=== PATIENT | male | born 1945 | race Caucasian/White ===

== ENCOUNTER 2022-08-23 09:31 | Inpatient (IN) | payer MEDICARE, OTHER, SELFPAY ==
[2022-08-23] VITALS (32 sets, daily range): BP systolic 134–203; BP diastolic 52–106; PULSE 80–99; RESP 16–28; TEMP 36.2–37; O2SAT 97–100; BMI 29.7; BMI 36.8
--- NOTE | ~2022-08-23 | XR_ITS ---
EXAMINATION: XR chest 2V DATE: 08/23/2022 11:11 INDICATION: Shortness of breath TECHNIQUE: frontal and lateral views of the chest were obtained. COMPARISON: None FINDINGS: Patchy airspace opacities in the bilateral lower lung zones. Small bilateral pleural effusions at the posterior sulci. No pneumothorax. Borderline heart size accounting for AP technique. Median sternoto my wires and mediastinal surgical clips are seen, likely from prior coronary artery bypass grafting. Retained epicardial pacemaker leads. There are bridging osteophytes at multiple levels in the spine, consistent with diffuse idiopathic skeletal hyperostosis (DISH). IMPRESSION: 1. Opacities at the dependent lower lung zones which could represent pulmonary edema, atelectasis or pneumonia. 2. Small bilateral pleural effusions. Reviewed, dictated and finalized at location A.
--- NOTE | ~2022-08-23 | XR_ITS ---
XR chest 1V portable 08/25/2022 09:30 Indication: Shortness of breath Procedure: AP portable chest Comparison: 08/23/2022 Findings: Status post median sternotomy for CABG. Cardiomegaly. There is pulmonary vascular congestio n. No pleural effusion or pneumothorax. Impression: 1: Cardiomegaly with pulmonary vascular congestion. Reviewed, dictated and finalized at location B. Impression: 1: Cardiomegaly with pulmonary vascular congestion.
--- NOTE | ~2022-08-23 | XR_ITS ---
EXAMINATION: XR chest 1V portable DATE: 08/25/2022 14:12 INDICATION: Shortness of breath. TECHNIQUE: A single frontal view of the chest was obtained. COMPARISON: Chest single view at 8:38 AM, chest 2 views 08/23/2022 FINDINGS: There are airspace opacities in right lower lung zone. No pleural effusion or pneumothorax. The heart size is normal. Median sternotomy wires are noted. IMPRESSION: 1. Stable airspace opacities in right lower lung zone, consistent with atelectasis versus pneumonia. Reviewed, dictated and finalized at location A. IMPRESSION: 1. Stable airspace opacities in right lower lung zone, consistent with atelecta sis versus pneumonia.
--- NOTE | 2022-08-23 09:40 | ECG_ITS ---
Measurements Intervals [place] Rate: 88 P: -34 [place]: 187 QRS: -45 QRSD: 138 T: 112 QT: 410 QTc: 498 Interpretive Statements SINUS RHYTHM POSSIBLE LEFT ATRIAL ENLARGEMENT [-0.1mV P-WAVE IN V1/V2] RIGHT BUNDLE BRANCH BLOCK [120+ ms QRS DURATION, UPRIGHT V1, 40+ ms S IN I/aVL/V4/V5/V6] LEFT ANTERIOR FASCICULAR BLOCK [QRS AXIS <= -45, QR IN I, RS IN II] LEFT VENTRICULAR HYPERTROPHY AND ST-T CHANGE [VOLTAGE CRITERIA PLUS ST/T ABNORMALITY] NO PREVIOUS ECG AVAILABLE FOR COMPARISON Electronically Signed On 08-23-2022 13:13:43 CDT by Arnold Sin M.D.
--- NOTE | 2022-08-23 10:00 | ED.SOB ---
HPI - SOB/Dyspnea General Chief Complaint: Shortness of Breath/Dyspnea <Holly Narvaez PA-C - Last Filed: 08/23/22 16:28> Stated Complaint: SOB <Holly Narvaez PA-C - Last Filed: 08/23/22 16:28> Time Seen by Provider: 08/23/22 09:47 <Holly Narvaez PA-C - Last Filed: 08/23/22 16:28> History of Present Illness HPI Narrative: Patient is a 76-year-old male with a history of end-stage renal disease on Sunday dialysis, CAD status post numerous MIs, 5 stents and CABG procedure done at [facility], diabetes complicated by gastroparesis, here for evaluation of shortness of breath today. Patient states that he became profoundly dyspneic while at rest after waking up today. Denies history of dyspnea. Unable to move without becoming very short of breath. Had some chest tightness yesterday, resolved after nitro, none today. Additionally notes nausea vomiting and diarrhea yesterday, which has improved today but patient is still nauseated. No abdominal pain, fevers. Patient receives all of his care at [facility]. <Holly Narvaez PA-C - Last Filed: 08/23/22 16:28> Related Data Home Medications: Home Medications Medication Instructions Recorded Confirmed amlodipine 5 mg tablet mg 08/23/22 atorvastatin 80 mg tablet mg 08/23/22 carvedilol 12.5 mg tablet mg 08/23/22 clopidogrel 75 mg tablet mg 08/23/22 duloxetine 60 mg capsule,delayed mg PO 08/23/22 08/23/22 release ergocalciferol (vitamin D2) 1,250 08/23/22 mcg (50,000 unit) capsule (Vitamin D2) insulin aspart U-100 100 unit/mL 08/23/22 subcutaneous solution (Novolog U-100 Insulin aspart) isosorbide mononitrate 60 mg mg PO 08/23/22 tablet,extended release 24 hr losartan 25 mg tablet mg 08/23/22 metoclopramide HCl 5 mg tablet mg 08/23/22 nitroglycerin 0.4 mg sublingual mg 08/23/22 tablet omeprazole 20 mg capsule,delayed mg 08/23/22 release vitamin B complex-vitamin C-folic tablet 08/23/22 acid 0.8 mg tablet (Nephro-Cristian) <Holly Narvaez PA-C - Last Filed: 08/23/22 16:28> Allergies/Adverse Reactions: Allergies Allergy/AdvReac Type Severity Reaction Status Date / Time No Known Allergies Allergy Verified 08/23/22 10:23 <Holly Narvaez PA-C - Last Filed: 08/23/22 16:28> Review of Systems Review of Systems: Gen: Denies fevers or chills Eyes: Denies eye pain or visual change ENT: Denies congestion Respiratory: Reports shortness of breath. CV: Denies chest pain or palpitations GI: Reports nausea vomiting and diarrhea. : denies burning, urgency, frequency or hematuria Musculoskeletal: Denies back pain or muscle pain Neuro: Denies numbness, tingling, weakness or focal weakness Skin: Denies rash Except as documented, all other systems reviewed and negative <Holly Narvaez PA-C - Last Filed: 08/23/22 16:28> [facility] Past Medical History Medical History: Medical History (Updated 08/23/22 @ 16:12 by Patricio Ruffin MD) Controlled diabetes mellitus Erythropoietin deficiency anemia ESRD (end stage renal disease) Essential (primary) hypertension Fluid overload, unspecified Hyperlipidemia, unspecified VIOLETTA (renal osteodystrophy) <Holly Narvaez PA-C - Last Filed: 08/23/22 16:28> Course DENTAL OFFICE COORDINATOR/PA Physician Supervision For this patient encounter, I reviewed the DENTAL OFFICE COORDINATOR or PA documentation, treatment plan, and medical decision making; and I had [id number] time with this patient. <Ryan Melendez MD - Last Filed: 08/23/22 11:50> Consultations Consultation #1: Dr. Henriquez, hospitalist at [facility], agrees with plan for transfer <Holly Narvaez PA-C - Last Filed: 08/23/22 16:28> Date: 08/23/22 <Holly Narvaez PA-C - Last Filed: 08/23/22 16:28> Time: 12:33 <Holly Narvaez PA-C - Last Filed: 08/23/22 16:28> Vital Signs Vital signs:
[2022-08-23 10:14] LABS: Base Excess ABG 4.3 mEq/l (+/-2.0); Device ROOM AIR; Fractional Inspired Oxygen 21 %; HCO3 ABG 29.7 mEq/l (22.0-26.0); Modified Allen's Test Pass; Oxygen Content ABG 16.1 %vol (16.0-22.0); Oxygen Saturation ABG 98.4 % (95.0-100.0); Oxyhemoglobin 95.7 % THb (90.0-100.0); PCO2 ABG 47.7 mmHg (35.0-45.0); PO2 ABG 122.9 mmHg (80.0-100.0); PO2 FiO2 Ratio Arterial Blood 5.85 %; Site Drawn RIGHT RADIAL; Total Hemoglobin 11.8 g/dL (12.0-18.0); pH ABG 7.412 (7.350-7.450)
[2022-08-23 10:28] LABS: Basophils Absolute Auto 0.1 K/mm3 (0.0-0.1); Basophils Percent Auto 0.8 % (0.2-1.2); Eosinophils Absolute Auto 0.1 K/mm3 (0-0.3); Eosinophils Percent Auto 0.7 % (0-4.4); Hematocrit 33.2 % (42.0-52.0); Hemoglobin 10.7 g/dL (14.0-18.0); Immature Granulocyte Absolute 0.07 K/mm3 (0.00-0.031); Immature Granulocyte Percent A 0.8 % (0-0.5); Lymphocytes Absolute Auto 0.55 K/mm3 (0.9-3.2); Lymphocytes Percent Auto 6.2 % (18.3-44.2); Mean Corpuscular HGB Conc 32.2 g/dl (32-36); Mean Corpuscular Hemoglobin 32.7 pg (26-34); Mean Corpuscular Volume 101.5 fl (80-100); Mean Platelet Volume 10.9 fl (7.4-10.4); Monocytes Absolute Auto 0.7 K/mm3 (0.1-0.6); Monocytes Percent Auto 7.9 % (2.6-8.5); Neutrophils Absolute Auto 7.4 K/mm3 (1.3-6.7); Neutrophils Percent Auto 83.6 % (45.5-73.1); Platelet Count Result 149 k/mm3 (150-375); Red Blood Count 3.27 M/mm3 (4.6-6.20); Red Cell Distribution Width 12.5 % (11.5-14.5); White Blood Count 8.8 K/mm3 (4.5-10.0)
[2022-08-23 10:38] LABS: Lipase 289 U/L (23-300)
[2022-08-23 10:40] LABS: Alanine Aminotransferase 18 U/L (6-50); Albumin Level 4.2 g/dL (3.5-5.1); Alkaline Phosphatase 56 U/L (38-126); Anion Gap 18 mmol/L (8-16); Aspartate Amino Transferase 17 U/L (17-59); Blood Urea Nitrogen 37 mg/dL (9-20); Calcium 8.8 mg/dL (8.4-10.2); Carbon Dioxide 33 mmol/L (22-30); Chloride 88 mmol/L (98-107); Estimated CRCL calculation 9 ml/min; Estimated Glomerular Filt Rate 7; Glucose 159 mg/dL (65-110); Potassium 4.3 mmol/L (3.4-5.0); Sodium 139 mmol/L (137-145)
[2022-08-23 10:42] LABS: INR 1.1; Prothrombin Time 13.8 Seconds (11.1-14.7)
[2022-08-23 10:43] LABS: Partial Thromboplastin Time 30.4 SECONDS (22.3-36.8)
[2022-08-23 10:54] LABS: NT Pro B Type Natriuretic Pept > 35000 pg/mL (5-100); Troponin I 0.083 ng/mL (0.000-0.034)
[2022-08-23 11:06] LABS: Magnesium 1.8 mg/dL (1.6-2.3); Phosphorus 5.6 mg/dL (2.5-4.5)
[2022-08-23 11:07] LABS: SARS-CoV-2 RNA PCR Negative
--- NOTE | 2022-08-23 13:17 | PM.CNNEP ---
Assessment and Plan Assessment and plan (1) ESRD (end stage renal disease): Code(s): N18.6 - End stage renal disease Status: Acute Assessment and Plan: pt has esrd due to dm and htn HD soon. I wrote orders and notified the nurse. (2) Essential (primary) hypertension: Code(s): I10 - Essential (primary) hypertension Status: Acute Assessment and Plan: bp is high. it should come down with fluid removal. (3) Fluid overload, unspecified: Code(s): E87.70 - Fluid overload, unspecified Status: Acute Assessment and Plan: he got to dry weight on sunday. I suspect his real weight is lower than the DW because he lost weight with his gastroparesis. will remove extra fluid. maybe a DUF tomorrow depending on how he looks. (4) Controlled diabetes mellitus: Code(s): E11.9 - Type 2 diabetes mellitus without complications Status: Acute Assessment and Plan: on accuchecks and SSI per hospitalist (5) Hyperlipidemia, unspecified: Code(s): E78.5 - Hyperlipidemia, unspecified Status: Acute Assessment and Plan: he is on atorvastain (6) Erythropoietin deficiency anemia: Code(s): D63.1 - Anemia in chronic kidney disease Status: Acute Assessment and Plan: hb 10.7. will give 4000 epo if bp comes down (7) VIOLETTA (renal osteodystrophy): Code(s): N25.0 - Renal osteodystrophy Status: Acute Assessment and Plan: check phos in am History of Present Illness Reason for Consult Consult date: 08/23/22 Chief Complaint Chief complaint: chf exacerbation History of Present Illness Narrative: Mr Magallanes is a 76 yo male with multiple medical problems including DM with neuropathy, gastroparesis, and renal failure; HTN, CAD s/p stents, CABG, MIs, GERD, HLD. pt has not been eating well the last week or so. gastroparesis has been worse. he has been going to HD faithfully and getting down to his dry weight. he has no swelling and his bp has been pretty good at HD he says. today he was due for HD and he was very sob so called 911 and they brought him here to be evaluated. In ER he was found to have lo oxygen level, cxr showing pulmonary edema. he is being admitted for further care. his bp was high in the ER. he had a short period of cp last night relieved by one nitro. this is not an uncommon occurence. Past Hx as above SHx. he does not smoke or drink All: nkda Review of Systems Constitutional: Constitutional: Reports no additional constitutional complaints Eyes: Eyes: Reports no additional eye complaints ENT: Reports system reviewed and no additional complaints, except as documented Cardiovascular: Cardiovascular: Reports no additional cardiovascular complaints Respiratory: Respiratory: Reports no additional respiratory complaints Gastrointestinal: Gastrointestinal: Reports no additional gastrointestinal complaints Genitourinary: Genitourinary: Reports no additional male genitourinary complaints Musculoskeletal: Musculoskeletal: Reports no additional musculoskeletal complaints Integumentary/Breasts: Skin/Breast: Reports system reviewed and no additional complaints, except as docu Neurologic: Reports system reviewed and no additional complaints, except as documented Psychiatric: Psychiatric: Reports no additional psychiatric complaints Endocrine: Endocrine: Reports no additional endocrine complaints PMFSH Past Medical History Medical History (Updated 08/23/22 @ 16:12 by Patricio Ruffin MD) Controlled diabetes mellitus Erythropoietin deficiency anemia ESRD (end stage renal disease) Essential (primary) hypertension Fluid overload, unspecified Hyperlipidemia, unspecified VIOLETTA (renal osteodystrophy) Meds Home Medications and Allergies Home Medications Medication Instructions Recorded Confirmed Type amlodipine 5 mg tablet mg 08/23/22 History atorvastatin 80 mg tablet mg 08/23/22
[2022-08-23 14:26] LABS: Troponin I 0.117 ng/mL (0.000-0.034)
[2022-08-23] MEDS: EPOETIN ALFA-EPBX 4,000 UNITS/ML VIAL 4000 UNITS IV PUSH (15:15)
[2022-08-23] MEDS: SODIUM CHLORIDE 0.9% IV 1,000 ML 999 ML IV CONT (15:15)
[2022-08-23] MEDS: cloNIDine HCL 0.1 MG TABLET PO (16:44)
--- NOTE | 2022-08-23 18:36 | ADMGEN ---
This patient, Robert Magallanes, was admitted to IMU Room 231-01 at 1835 on 08/23/2022. Report received from Madelyn DREW. Patient/family oriented to hospital policies and general routines including ID bracelet, bed and alarms, visiting hours, pain management, procedures, bathroom and other care routines, personal items, smoking policy, room service/diet, and visiting hours. Information on how to activate the Rapid Response Team has been discussed. Patient/Family are encouraged to report perceived risks to care and to ask questions if they do not understand what they are told or what they should do.
[2022-08-23 18:40] LABS: Glucose Point of Care 123 mg/dl (65-105)
--- NOTE | 2022-08-23 19:58 | PM.IMHP ---
H&P: HPI History of Present Illness Date/Time: 08/23/22 19:58 Chief Complaint: chest pain/ shortness of breath Narrative: this is a 76-year-old male patient who has end-stage renal disease with dialysis on Sunday and Sunday. The patient tells me that he has all of his care performed at [facility]. However the patient cannot tell me who his bag mender is. He also his a history of 5 stents and a 1 vessel CABG. The patient stated that he became short of breath today and was very dyspneic with rest and exertion He was unable to move without becoming short of breath. He also had some chest tightness that started yesterday and was resolved after nitroglycerin. No chest pain today. The patient noted that he had nausea vomiting and diarrhea yesterday and improved today. He had some nausea today the no abdominal pain. The patient stated that he is new to this area. His H&H is 10.7 and 33.2. MCV is 101.5. Platelet count 149. The patient's BUN is 37 and creatinine 7.6. Glucose 159 and he had an Accu-Chek of 123. phosphorus was 5.6. Troponin 0.083 and 0.117. His BNP was greater than 35,000. Dr. Ruffin bag mender has been consulted and the patient went to dialysis today. The patient stated he felt much better after dialysis. COVID-19 was found to be negative. Chest x-ray was read as opacities at the dependent lower lung zones which could represent pulmonary edema atelectasis or pneumonia. Small bilateral pleural effusions. The patient was given IV fluids and Catapres as well as Retacrit per Dr. Ruffin. He was also given albumin. The patient is being admitted to observation status on the date of service of 08/23/2022. Review of Systems Review of Systems: HPI All systems reviewed & are unremarkable except as noted in HPI and below Constitutional: Constitutional: Reports as per HPI and Reports no additional constitutional complaints Eyes: Eyes: Reports as per HPI and Reports no additional eye complaints ENT: Reports system reviewed and no additional complaints, except as documented and Reports Normal hearing present Cardiovascular: Cardiovascular: Reports no additional cardiovascular complaints Respiratory: Respiratory: Reports no additional respiratory complaints and Reports no additional respiratory complaints Gastrointestinal: Gastrointestinal: Reports as per HPI and Reports no additional gastrointestinal complaints Musculoskeletal: Musculoskeletal: Reports no additional musculoskeletal complaints Integumentary/Breasts: Skin/Breast: Reports system reviewed and no additional complaints, except as docu and Reports as per HPI Neurologic: Reports system reviewed and no additional complaints, except as documented, Reports as per HPI and Reports Normal hearing present Psychiatric: Psychiatric: Reports no additional psychiatric complaints and Reports as per HPI Endocrine: Endocrine: Reports no additional endocrine complaints Hematologic/Lymphatic: Hematologic/Lymphatic: Reports no additional hematologic/lymphatic complaints Allergic/Immunologic: Allergic/Immunologic: Reports no additional allergic/immunologic complaints [facility] Past Medical History Medical History (Updated 08/23/22 @ 20:15 by Tianna Iglesias NP) AV fistula Controlled diabetes mellitus Depression Erythropoietin deficiency anemia ESRD (end stage renal disease) Sunday Essential (primary) hypertension Fluid overload, unspecified Hyperlipidemia, unspecified VIOLETTA (renal osteodystrophy) Surgical History Surgical History (Updated 08/23/22 @ 20:08 by Tianna Iglesias NP) H/O cataract extraction H/O heart artery stent H/O radical nephrectomy H/O vasectomy S/P CABG x 1 S/P total knee arthroplasty Family History Family History (Updated 08/23/22 @ 20:09 by Tianna Iglesias NP) Father Heart disease Mother Tuberculosis Sibling Acute myocardial infarction Social History Social History (Updated 10
[2022-08-23 20:22] LABS: Glucose Point of Care 141 mg/dl (65-105)
[2022-08-24] VITALS (33 sets, daily range): BP systolic 104–183; BP diastolic 53–81; PULSE 71–93; RESP 18–22; TEMP 36.2–37; O2SAT 94–100; BMI 29.7
--- NOTE | 2022-08-24 | ECHO_ITS ---
Patient Info Name: Robert Magallanes Age: 76 years : 1945 Gender: Male Ht: 72 in Wt: 271 lbs BSA: 2.54 m2 BP: 151 / 60 mmHg Heart Rhythm: Sinus Rhythm Technical Quality: Fair Exam Date: 08/24/2022 2:36 PM Exam Location: [facility] Pulmonary Patient Status: Inpatient Admit Date: 08/24/2022 Staff Ordering Physician: Tianna Iglesias NP Commercial Counsel: Maine Carpenter RDCS Attending Provider: Patel Fletcher MD Referring Physician: Harris VIEIRA; Exam Type: CA echo dop color flow w con Study Info Indications R06.09 - Other forms of dyspnea Complete two-dimensional, color flow and Doppler transthoracic echocardiogram is performed with contrast to opacify the left ventricle and to improve the deliniation of the left ventricle endocardial borders. Contrast/Agitated Saline Contrast/Ag. Saline: Definity Amount: 3.00 ml Administered By: Maine Carpenter RDCS Existing IV Access: Yes IV Access Condition: patent with no signs of infiltration Summary 1. Left ventricular chamber dimension is severely enlarged. 2. Left ventricular systolic function is severely reduced, estimated at 25-30%. 3. There is mildly increased left ventricular wall thickness. 4. There is hypokinesis-akinesis of the basal anteroseptum, mid anteroseptum, basal inferoseptum, mid inferoseptum, apical septum, basal anterior, mid anterior, apical anterior fitch. 5. Right ventricular systolic function is reduced. 6. Left atrial chamber dimension is mildly enlarged. 7. There is mild mitral valve regurgitation. 8. There is mild tricuspid valve regurgitation. 9. The aortic root size at the sinus of Valsalva is dilated. Left Ventricle There is hypokinesis-akinesis of the basal anteroseptum, mid anteroseptum, basal inferoseptum, mid inferoseptum, apical septum, basal anterior, mid anterior, apical anterior fitch. Left ventricular chamber dimension is severely enlarged. Left ventricular systolic function is severely reduced, estimated at 25-30%. There is mildly increased left ventricular wall thickness. Right Ventricle Right ventricular chamber dimension is normal. Right ventricular systolic function is reduced. Left Atria Left atrial chamber dimension is mildly enlarged. Right Atria Right atrial chamber dimension is normal. Atrial Septum Intact interatrial septum visualized by color flow imaging. Aortic Valve The aortic valve is trileaflet. There is mild aortic valve sclerosis. There is no aortic valve stenosis. There is no aortic valve regurgitation. Pulmonic Valve The pulmonic valve is not well visualized. Mitral Valve The mitral valve has normal leaflets. There is no mitral valve stenosis. There is mild mitral valve regurgitation. The mitral valve annulus is mildly calcified. Tricuspid Valve The tricuspid valve leaflets are normal. There is mild tricuspid valve regurgitation. Pericardium/Pleural There is no pericardial effusion. Aorta The aortic root size at the sinus of Valsalva is dilated. Left Ventricular Outflow Tract Name Value Normal LVOT 2D LVOT Diameter 2.07 cm LVOT Doppler
[2022-08-24 04:48] LABS: Basophils Absolute Auto 0.1 K/mm3 (0.0-0.1); Basophils Percent Auto 1.1 % (0.2-1.2); Eosinophils Absolute Auto 0.1 K/mm3 (0-0.3); Eosinophils Percent Auto 1.5 % (0-4.4); Hematocrit 31.1 % (42.0-52.0); Hemoglobin 10.1 g/dL (14.0-18.0); Immature Granulocyte Absolute 0.04 K/mm3 (0.00-0.031); Immature Granulocyte Percent A 0.6 % (0-0.5); Immature Platelet Fraction Pct 7.4 % (0.9-11.2); Lymphocytes Absolute Auto 0.76 K/mm3 (0.9-3.2); Lymphocytes Percent Auto 11.5 % (18.3-44.2); Mean Corpuscular HGB Conc 32.5 g/dl (32-36); Mean Corpuscular Volume 101.6 fl (80-100); Mean Platelet Volume 11.3 fl (7.4-10.4); Monocytes Absolute Auto 0.6 K/mm3 (0.1-0.6); Monocytes Percent Auto 8.4 % (2.6-8.5); Neutrophils Absolute Auto 5.1 K/mm3 (1.3-6.7); Neutrophils Percent Auto 76.9 % (45.5-73.1); Platelet Count Result 160 k/mm3 (150-375); Red Blood Count 3.06 M/mm3 (4.6-6.20); Red Cell Distribution Width 12.5 % (11.5-14.5); White Blood Count 6.6 K/mm3 (4.5-10.0)
[2022-08-24 05:10] LABS: Alanine Aminotransferase 16 U/L (6-50); Albumin Level 3.9 g/dL (3.5-5.1); Alkaline Phosphatase 56 U/L (38-126); Anion Gap 11 mmol/L (8-16); Aspartate Amino Transferase 16 U/L (17-59); Blood Urea Nitrogen 22 mg/dL (9-20); Calcium 8.5 mg/dL (8.4-10.2); Carbon Dioxide 36 mmol/L (22-30); Chloride 92 mmol/L (98-107); Estimated CRCL calculation 11 ml/min; Estimated Glomerular Filt Rate 9; Glucose 111 mg/dL (65-110); Lactate Dehydrogenase 138 U/L (120-246); Magnesium 1.9 mg/dL (1.6-2.3); Phosphorus 3.9 mg/dL (2.5-4.5); Potassium 4.3 mmol/L (3.4-5.0); Sodium 139 mmol/L (137-145)
[2022-08-24 05:15] LABS: Hemoglobin A1C 6.1 % (<5.7)
[2022-08-24] MEDS: SEVELAMER CARBONATE 800 MG TABLET 2400 MG PO ×3 (07:57→16:56)
[2022-08-24] MEDS: carvediloL 12.5 MG TABLET PO (07:57)
[2022-08-24] MEDS: hydrALAZINE HCL 20 MG/ML VIAL 10 MG IV PUSH (07:57)
[2022-08-24] MEDS: VITAMIN B CMPLX/VIT C/FOLIC AC 1 CAPSULE 1 CAP PO (07:57)
[2022-08-24] MEDS: TOLNAFTATE 1% POWDER 45 GM BTL 1 APPLIC TOPICAL (07:58)
[2022-08-24] MEDS: ASPIRIN 81 MG ENTERIC TABLET PO (07:58)
[2022-08-24] MEDS: DULoxetine HCL 60 MG CAPSULE.DR PO (07:58)
--- NOTE | 2022-08-24 09:30 | PM.PNNEP ---
Progress Note: A&P Assessment and Plan (1) ESRD (end stage renal disease): Code(s): N18.6 - End stage renal disease Status: Acute Assessment and Plan: pt has esrd due to dm and htn he had dialysis yesterday which was his routine day. He still has some volume overload so will do a dry ultrafiltration today. (2) Essential (primary) hypertension: Code(s): I10 - Essential (primary) hypertension Status: Acute Assessment and Plan: bp is high. It improved with clonidine and with fluid removal yesterday but today is back up. He is on amlodipine 5, carvedilol 12.5, hydralazine, losartan. Will increase the losartan to 50. (3) Fluid overload, unspecified: Code(s): E87.70 - Fluid overload, unspecified Status: Acute Assessment and Plan: He still has some excess fluid. Will take more fluid off today with dialysis machine. (4) Controlled diabetes mellitus: Code(s): E11.9 - Type 2 diabetes mellitus without complications Status: Acute Assessment and Plan: on accuchecks and SSI per hospitalist (5) Hyperlipidemia, unspecified: Code(s): E78.5 - Hyperlipidemia, unspecified Status: Acute Assessment and Plan: he is on atorvastain (6) Erythropoietin deficiency anemia: Code(s): D63.1 - Anemia in chronic kidney disease Status: Acute Assessment and Plan: Hemoglobin 10.1 today. (7) VIOLETTA (renal osteodystrophy): Code(s): N25.0 - Renal osteodystrophy Status: Acute Assessment and Plan: check phos in am Subjective Date/time seen: 08/24/22 09:30 Interval history: Robert is feeling better today but he is so short of breath. No chest pain. He did need dinner last night. Still no appetite. Review of Systems Cardiovascular: Cardiovascular: Reports no additional cardiovascular complaints Respiratory: Respiratory: Reports no additional respiratory complaints Gastrointestinal: Gastrointestinal: Reports no additional gastrointestinal complaints Genitourinary: Genitourinary: Reports no additional male genitourinary complaints Exam Narrative: WDWN in NAD skin no rash head ncat lungs Bibasilar crackles cor reg no rub abd BS+ nontender and soft ext no edema. Objective Data Vital Signs Vital Signs: Vital Signs - 24 hr 08/23/22 10:30 08/23/22 11:41 08/23/22 11:46 Temperature Pulse Rate 89 87 87 Respiratory Rate 16 20 21 H Blood Pressure 178/82 H 192/97 H Pulse Oximetry 100 100 100 Oxygen Delivery Oxygen Flow Rate Fraction of Inspired Oxygen 08/23/22 12:01 08/23/22 12:16 08/23/22 12:17 Temperature Pulse Rate 90 91 90 Respiratory Rate 20 23 H 20 Blood Pressure 187/82 H 187/87 H Pulse Oximetry 100 100 100 Oxygen Delivery Oxygen Flow Rate Fraction of Inspired Oxygen 08/23/22 12:32 08/23/22 12:55 08/23/22 13:13 Temperature Pulse Rate 93 99 89 Respiratory Rate 17 24 H 24 H Blood Pressure Pulse Oximetry 100 97 100 Oxygen Delivery Oxygen Flow Rate Fraction of Inspired Oxygen 08/23/22 13:16 08/23/22 13:17 08/23/22 14:18 Temperature Pulse Rate 90 92 88 Respiratory Rate 23 H 22 H Blood Pressure 187/83 H 175/94 H Pulse Oximetry 100 100 Oxygen Delivery Oxygen Flow Rate Fraction of Inspired Oxygen 08/23/22 14:05 08/23/22 14:05 08/23/22 14:40 Temperature 36.3 C L Pulse Rate 97 91 Respiratory Rate 28 H Blood Pressure 194/106 H 187/95 H Pulse Oximetry Oxygen Delivery Oxygen Flow Rate Fraction of Inspired Oxygen 2 08/23/22 15:00 08/23/22 15:20 08/23/22 15:40 Temperature Pulse Rate 88 87 87 Respiratory Rate Blood Pressure 190/89 H 188/91 H 189/94 H Pulse Oximetry Oxygen Delivery Oxygen Flow Rate Fraction of Inspired Oxygen 08/23/22 16:00 08/23/22 16:20 08/23/22 16:40 Temperature Pulse Rate 88 89 89 Respiratory Rate Blood Pressure 197/
--- NOTE | 2022-08-24 11:00 | PM.CNCAR ---
Assessment and Plan Assessment and plan (1) Elevated troponin: Code(s): R77.8 - Other specified abnormalities of plasma proteins Status: Acute Assessment and Plan: Troponins 0.083 --> 0.117. In the setting of ESRD. EKG with sinus rhythm, RBBB, LVH. No ischemic changes. Echo ordered and pending. Will follow up on results. At this time, it does not appear to be ACS. 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 Would continue his home ASA, Plavix, beta-nikhil, statin. Is already scheduled to see Dr. Delaney in August. History of Present Illness History of Present Illness Consult date/time: 08/24/22 11:00 Requesting physician: Tianna Iglesias NP Consult reason: congestive heart failure and shortness of breath Reason For Visit: chf exacerbation Narrative: This is a patient who we are consulted for heart failure. Patient is a 76-year-old male with a history of ESRD on HD, CAD s/p CABG and stents. Patient presented with progressive shortness of breath. Patient also reports chest tightness yesterday that resolved after 2 SL NTG. Patient states he occasionally takes SL NTG for chest pain, but cannot remember the last time when and does not think it is too frequently. Patient also noted to have nausea, vomiting, diarrhea. Got dialysis yesterday and feels better today. Patient states that he just moved from [place], [place]. Cannot remember who is packing line operator was there, but was being seen at [facility]. It appears that patient is on ASA and Plavix at home. Patient is not the best historian. Patient states that he has an upcoming appointment to get established with Cardiology. Is scheduled to see Dr. Delaney in August. Review of Systems Constitutional: Constitutional: Denies body ache(s), Denies chills, Reports fatigue and Reports weakness Eyes: Eyes: Reports no additional eye complaints ENT: Denies dysphagia and Denies epistaxis Cardiovascular: Cardiovascular: Denies chest pain, Denies leg edema and Denies palpitations Respiratory: Respiratory: Reports dyspnea Gastrointestinal: Gastrointestinal: Denies abdominal pain, Denies nausea and Denies vomiting Musculoskeletal: Musculoskeletal: Reports no additional musculoskeletal complaints Integumentary/Breasts: Skin/Breast: Reports system reviewed and no additional complaints, except as docu Neurologic: Reports system reviewed and no additional complaints, except as documented Hematologic/Lymphatic: Hematologic/Lymphatic: Denies easy bleeding and Denies easy bruising PMFSH Past Medical History Medical History (Updated 08/24/22 @ 11:06 by Arnold Sin MD) AV fistula CAD (coronary artery disease) Controlled diabetes mellitus Depression Erythropoietin deficiency anemia ESRD (end stage renal disease) Sunday Essential (primary) hypertension Fluid overload, unspecified Hyperlipidemia, unspecified VIOLETTA (renal osteodystrophy) Surgical History Surgical History H/O cataract extraction H/O heart artery stent H/O radical nephrectomy H/O vasectomy S/P CABG x 1 S/P total knee arthroplasty Family History Family History Father Heart disease Mother Tuberculosis Sibling Acute myocardial infarction Social History Social History Social History: the patient lives with his and he is retired. He has 2 children. He retired from the [employer] And he is a former smoker. the patient denies any alcohol marijuana or illicit drugs. Code status full code Smoking status: Former smoker Alcoh
--- NOTE | 2022-08-24 12:22 | PM.IMPN ---
Progress Note: A&P Assessment and Plan (1) Chest pain: Code(s): R07.9 - Chest pain, unspecified Status: Acute Assessment and Plan: appreciate cardiology consultation, echo pending, likely not cardiac in etiology (2) Dyspnea on exertion: Code(s): R06.09 - Other forms of dyspnea Status: Acute Assessment and Plan: improved after dialysis, suspect it was due to volume overload, follow up on echo results, hold off on antibiotics for now (3) Fluid overload, unspecified: Code(s): E87.70 - Fluid overload, unspecified Status: Acute Assessment and Plan: improved, monitor (4) Essential (primary) hypertension: Code(s): I10 - Essential (primary) hypertension Status: Acute Assessment and Plan: stable, continue p.r.n. medications for now, defer further management to Nephrology (5) ESRD (end stage renal disease): Code(s): N18.6 - End stage renal disease Status: Acute Assessment and Plan: appreciate nephrology consultation (6) Controlled diabetes mellitus: Code(s): E11.9 - Type 2 diabetes mellitus without complications Status: Acute Assessment and Plan: a1c is 6.1 with insulin pump on board cont accuchecks (7) Hyperlipidemia, unspecified: Code(s): E78.5 - Hyperlipidemia, unspecified Status: Acute Assessment and Plan: continue statin (8) Erythropoietin deficiency anemia: Code(s): D63.1 - Anemia in chronic kidney disease Status: Acute Assessment and Plan: stable, appreciate nephrology consultation, receiving Epogen (9) Depression: Code(s): F32.A - Depression, unspecified Status: Acute Assessment and Plan: continue home medications Plan DVT prophylaxis with SCDs GI prophylaxis not indicated Code status full code Subjective Date/time seen: 08/24/22 12:22 Interval history: No overnight events noted. No chest pain or shortness of breath. No nausea, vomiting or diarrhea. No fevers or chills. Review of Systems Review of Systems: 12 point review of systems was assessed and was negative except as noted in the HPI Exam Narrative: General: No acute distress, alert and oriented per baseline HEENT: Atraumatic, normocephalic, mucous membranes moist CV: Regular rate and rhythm, S1, S2 Lungs: Clear to auscultation bilaterally, no rales or crackles noted, no wheezes, good air entry Abdomen: Soft, nontender, nondistended Extremities: Normal to inspection Skin: No rashes noted, no lesions or wounds seen Psych: Euthymic, normal affect Objective Data Vital Signs Vital Signs: Vital Signs - 24 hr 08/23/22 12:32 08/23/22 12:55 08/23/22 13:13 Temperature Pulse Rate 93 99 89 Respiratory Rate 17 24 H 24 H Blood Pressure Pulse Oximetry 100 97 100 Oxygen Delivery Oxygen Flow Rate Fraction of Inspired Oxygen 08/23/22 13:16 08/23/22 13:17 08/23/22 14:18 Temperature Pulse Rate 90 92 88 Respiratory Rate 23 H 22 H Blood Pressure 187/83 H 175/94 H Pulse Oximetry 100 100 Oxygen Delivery Oxygen Flow Rate Fraction of Inspired Oxygen 08/23/22 14:05 08/23/22 14:05 08/23/22 14:40 Temperature 97.4 F L Pulse Rate 97 91 Respiratory Rate 28 H Blood Pressure 194/106 H 187/95 H Pulse Oximetry Oxygen Delivery Oxygen Flow Rate Fraction of Inspired Oxygen 2 08/23/22 15:00 08/23/22 15:20 08/23/22 15:40 Temperature Pulse Rate 88 87 87 Respiratory Rate Blood Pressure 190/89 H 188/91 H 189/94 H Pulse Oximetry Oxygen Delivery Oxygen Flow Rate Fraction of Inspired Oxygen 08/23/22 16:00 08/23/22 16:20 08/23/22 16:40 Temperature Pulse Rate 88 89 89 Respiratory Rate Blood Pressure 197/89 H 203/89 H 197/89 H Pulse Oximetry Oxygen Delivery Oxygen Flow Rate Fraction of Inspired Oxygen 08/23/22 17:00 08/23/22 17:20 08/23/22 17:49 Temperature
--- NOTE | 2022-08-24 13:29 | PCNSR ---
On 08/24/22, the student,Miguel Angel Omalley, provided care and completed [facility] documentation on this patient. I have reviewed the student's documentation and agree with the findings.
[2022-08-24] MEDS: PERFLUTREN LIPID MICROSPHERES 1.5 ML VIAL DILUTED TO 10 ML TOTAL VOLUME IV PUSH (14:50)
[2022-08-24 19:40] LABS: Glucose Point of Care 248 mg/dl (65-105)
[2022-08-24] MEDS: ATORVASTATIN 40 MG TABLET 80 MG PO (20:29)
[2022-08-24] MEDS: LOSARTAN POTASSIUM 25 MG TABLET PO (20:30)
[2022-08-24] MEDS: carvediloL 12.5 MG TABLET BY MOUTH (20:30)
[2022-08-24] MEDS: CLOPIDOGREL BISULFATE 75 MG TABLET PO (20:30)
[2022-08-24] MEDS: amLODIPine BESYLATE 5 MG TABLET PO (20:30)
[2022-08-25] VITALS (26 sets, daily range): BP systolic 88–155; BP diastolic 46–73; PULSE 58–127; RESP 16–22; TEMP 36.4–37.1; O2SAT 92–100; BMI 28.5
[2022-08-25 05:03] LABS: Basophils Absolute Auto 0.1 K/mm3 (0.0-0.1); Basophils Percent Auto 1.2 % (0.2-1.2); Eosinophils Absolute Auto 0.3 K/mm3 (0-0.3); Eosinophils Percent Auto 4.2 % (0-4.4); Hemoglobin 11.2 g/dL (14.0-18.0); Immature Granulocyte Absolute 0.02 K/mm3 (0.00-0.031); Immature Granulocyte Percent A 0.3 % (0-0.5); Lymphocytes Absolute Auto 1.07 K/mm3 (0.9-3.2); Lymphocytes Percent Auto 16.5 % (18.3-44.2); Mean Corpuscular HGB Conc 32.9 g/dl (32-36); Mean Corpuscular Hemoglobin 32.3 pg (26-34); Mean Platelet Volume 11.3 fl (7.4-10.4); Monocytes Absolute Auto 0.6 K/mm3 (0.1-0.6); Monocytes Percent Auto 8.8 % (2.6-8.5); Neutrophils Absolute Auto 4.5 K/mm3 (1.3-6.7); Platelet Count Result 174 k/mm3 (150-375); Red Blood Count 3.47 M/mm3 (4.6-6.20); Red Cell Distribution Width 12.4 % (11.5-14.5); White Blood Count 6.5 K/mm3 (4.5-10.0)
[2022-08-25 05:19] LABS: Alanine Aminotransferase 16 U/L (6-50); Albumin Level 4.2 g/dL (3.5-5.1); Alkaline Phosphatase 62 U/L (38-126); Anion Gap 14 mmol/L (8-16); Aspartate Amino Transferase 19 U/L (17-59); Bilirubin,Total 1.1 mg/dL (0.2-1.3); Blood Urea Nitrogen 45 mg/dL (9-20); Carbon Dioxide 33 mmol/L (22-30); Chloride 88 mmol/L (98-107); Estimated CRCL calculation 8 ml/min; Estimated Glomerular Filt Rate 7; Glucose 127 mg/dL (65-110); Phosphorus 5.4 mg/dL (2.5-4.5); Sodium 135 mmol/L (137-145)
--- NOTE | 2022-08-25 08:04 | PM.IMPN ---
Progress Note: A&P Assessment and Plan (1) Chest pain: Code(s): R07.9 - Chest pain, unspecified Status: Acute Assessment and Plan: appreciate cardiology consultation, echo pending, likely not cardiac in etiology (2) Dyspnea on exertion: Code(s): R06.09 - Other forms of dyspnea Status: Acute Assessment and Plan: improved after dialysis, suspect it was due to volume overload, follow up on echo results, hold off on antibiotics for now (3) Fluid overload, unspecified: Code(s): E87.70 - Fluid overload, unspecified Status: Acute Assessment and Plan: improved, monitor (4) Essential (primary) hypertension: Code(s): I10 - Essential (primary) hypertension Status: Acute Assessment and Plan: stable, continue p.r.n. medications for now, defer further management to Nephrology (5) ESRD (end stage renal disease): Code(s): N18.6 - End stage renal disease Status: Acute Assessment and Plan: appreciate nephrology consultation (6) Controlled diabetes mellitus: Code(s): E11.9 - Type 2 diabetes mellitus without complications Status: Acute Assessment and Plan: a1c is 6.1 with insulin pump on board cont accuchecks (7) Hyperlipidemia, unspecified: Code(s): E78.5 - Hyperlipidemia, unspecified Status: Acute Assessment and Plan: continue statin (8) Erythropoietin deficiency anemia: Code(s): D63.1 - Anemia in chronic kidney disease Status: Acute Assessment and Plan: stable, appreciate nephrology consultation, receiving Epogen (9) Depression: Code(s): F32.A - Depression, unspecified Status: Acute Assessment and Plan: continue home medications Plan DVT prophylaxis with SCDs GI prophylaxis not indicated Code status full code Subjective Date/time seen: 08/25/22 08:04 Interval history: No overnight events noted. No chest pain or shortness of breath. No nausea, vomiting or diarrhea. No fevers or chills. Exam Narrative: General: No acute distress, alert and oriented per baseline HEENT: Atraumatic, normocephalic, mucous membranes moist CV: Regular rate and rhythm, S1, S2 Lungs: Clear to auscultation bilaterally, no rales or crackles noted, no wheezes, good air entry Abdomen: Soft, nontender, nondistended Extremities: Normal to inspection Skin: No rashes noted, no lesions or wounds seen Psych: Euthymic, normal affect Objective Data Vital Signs Vital Signs: Vital Signs - 24 hr 08/24/22 08:08 08/24/22 09:25 08/24/22 09:27 Temperature 97.2 F L 97.8 F Pulse Rate 89 93 Respiratory Rate 18 Blood Pressure 183/73 H 160/73 H Pulse Oximetry 94 Oxygen Delivery Oxygen Flow Rate 3 08/24/22 09:39 08/24/22 09:45 08/24/22 10:00 Temperature Pulse Rate 89 86 76 Respiratory Rate Blood Pressure 162/72 H 153/70 H Pulse Oximetry Oxygen Delivery Oxygen Flow Rate 08/24/22 10:00 08/24/22 10:15 08/24/22 10:30 Temperature Pulse Rate 80 78 76 Respiratory Rate Blood Pressure 150/71 H 148/65 H 138/69 Pulse Oximetry Oxygen Delivery Oxygen Flow Rate 08/24/22 10:45 08/24/22 11:00 08/24/22 11:15 Temperature Pulse Rate 71 75 74 Respiratory Rate Blood Pressure 135/69 157/65 H 146/76 H Pulse Oximetry Oxygen Delivery Oxygen Flow Rate 08/24/22 11:30 08/24/22 11:45 08/24/22 12:00 Temperature Pulse Rate 74 76 75 Respiratory Rate Blood Pressure 143/67 H 152/68 H Pulse Oximetry Oxygen Delivery Oxygen Flow Rate 08/24/22 12:00 08/24/22 12:00 08/24/22 12:15 Temperature Pulse Rate 75 75 Respiratory Rate Blood Pressure 148/71 H 142/71 H Pulse Oximetry 94 Oxygen Delivery High Flow Nasal Cannula Oxygen Flow Rate 3 08/24/22 12:30 08/24/22 12:39 08/24/22 12:43 Temperature 98.2 F Pulse Rate 78 77 76 Respiratory Rate 20 Blood Pressure 120/
[2022-08-25 08:20] LABS: Glucose Point of Care 117 mg/dl (65-105)
--- NOTE | 2022-08-25 10:11 | PC.NURSE ---
Patient travelled to dialysis with staff at 0903. Patient alert x4, no complaints of shortness of breath, or chest pain at the time of transfer.
--- NOTE | 2022-08-25 10:58 | PM.PNNEP ---
Progress Note: A&P Assessment and Plan (1) ESRD (end stage renal disease): Code(s): N18.6 - End stage renal disease Status: Acute Assessment and Plan: pt has esrd due to dm and htn he had dialysis on Sunday. He is getting another treatment today. Yesterday was a dry ultrafiltration. Okay for discharge any time from the kidney standpoint. (2) Essential (primary) hypertension: Code(s): I10 - Essential (primary) hypertension Status: Acute Assessment and Plan: bp is Improving with fluid removal. (3) Fluid overload, unspecified: Code(s): E87.70 - Fluid overload, unspecified Status: Acute Assessment and Plan: Doing much better now. (4) Controlled diabetes mellitus: Code(s): E11.9 - Type 2 diabetes mellitus without complications Status: Acute Assessment and Plan: on accuchecks and SSI per hospitalist (5) Hyperlipidemia, unspecified: Code(s): E78.5 - Hyperlipidemia, unspecified Status: Acute Assessment and Plan: he is on atorvastain (6) Erythropoietin deficiency anemia: Code(s): D63.1 - Anemia in chronic kidney disease Status: Acute Assessment and Plan: Hemoglobin 10.1 today. Getting Epogen. (7) VIOLETTA (renal osteodystrophy): Code(s): N25.0 - Renal osteodystrophy Status: Acute Assessment and Plan: check phos in am Subjective Date/time seen: 08/25/22 10:58 Interval history: Robert is feeling better today his breathing is much better. He is on dialysis and tolerating it well. He was seen at 9:30 a.m. No chest pain. Exam Narrative: WDWN in NAD skin no rash head ncat lungs more clear today cor reg no rub abd BS+ nontender and soft ext no edema. Objective Data Vital Signs Vital Signs: Vital Signs - 24 hr 08/24/22 11:00 08/24/22 11:15 08/24/22 11:30 Temperature Pulse Rate 75 74 74 Respiratory Rate Blood Pressure 157/65 H 146/76 H 143/67 H Pulse Oximetry Oxygen Delivery Oxygen Flow Rate 08/24/22 11:45 08/24/22 12:00 08/24/22 12:00 Temperature Pulse Rate 76 75 Respiratory Rate Blood Pressure 152/68 H Pulse Oximetry 94 Oxygen Delivery High Flow Nasal Cannula Oxygen Flow Rate 3 08/24/22 12:00 08/24/22 12:15 08/24/22 12:30 Temperature Pulse Rate 75 75 78 Respiratory Rate Blood Pressure 148/71 H 142/71 H 120/58 L Pulse Oximetry Oxygen Delivery Oxygen Flow Rate 08/24/22 12:39 08/24/22 12:43 08/24/22 13:36 Temperature 36.8 C 36.4 C Pulse Rate 77 76 81 Respiratory Rate 20 22 H Blood Pressure 104/57 L 136/81 147/62 H Pulse Oximetry 100 Oxygen Delivery Oxygen Flow Rate 08/24/22 14:00 08/24/22 16:00 08/24/22 16:00 Temperature Pulse Rate 78 82 Respiratory Rate Blood Pressure Pulse Oximetry 94 Oxygen Delivery High Flow Nasal Cannula Oxygen Flow Rate 3 08/24/22 16:55 08/24/22 18:00 08/24/22 20:30 Temperature 36.4 C Pulse Rate 80 77 85 Respiratory Rate 20 Blood Pressure 141/53 H Pulse Oximetry 99 Oxygen Delivery Oxygen Flow Rate 08/24/22 20:00 08/24/22 20:00 08/24/22 20:00 Temperature 36.4 C Pulse Rate 84 77 Respiratory Rate 18 Blood Pressure 152/56 H Pulse Oximetry 99 100 Oxygen Delivery Nasal Cannula Oxygen Flow Rate 3 08/24/22 22:00 08/25/22 00:00 08/25/22 00:00 Temperature Pulse Rate 77 77 70 Respiratory Rate 18 Blood Pressure Pulse Oximetry 100 Oxygen Delivery CPAP Oxygen Flow Rate 08/25/22 00:00 08/24/22 23:10 08/25/22 02:00 Temperature 37.1 C Pulse Rate 72 89 70 Respiratory Rate 22 H 22 H Blood Pressure 142/63 H Pulse Oximetry 97 94 Oxygen Delivery Autopap Oxygen Flow Rate 08/25/22 04:00 08/25/22 04:00 08/25/22 03:15 Temperature Pulse Rate 68 68 80 Respiratory Rate 22 H 20 Blood Pressure Pulse Oximetry 97 98 Oxygen Delivery CPAP Au
--- NOTE | 2022-08-25 12:23 | PM.PNCARD ---
Progress Note: A&P Assessment and Plan (1) CAD (coronary artery disease): Code(s): I25.10 - Atherosclerotic heart disease of [place] coronary artery without angina pectoris Status: Acute Assessment and Plan: Troponins 0.083 --> 0.117. In the setting of ESRD. EKG with sinus rhythm, RBBB, LVH. No ischemic changes. At this time, it does not appear to be ACS. Continue DAPT, statin (2) Cardiomyopathy: Code(s): I42.9 - Cardiomyopathy, unspecified Status: Acute Assessment and Plan: Echo done yesterday and shows reduced LVEF. Unclear if this is new, however, unlikely to be new as patient was already on GDMT at home. Records obtained from [place], however, they do not mention what his EF was at that time, however, they do have diagnosis of cardiomyopathy listed. Would continue his home GDMT of ARB and beta-nikhil and have patient follow-up as an outpatient. Volume status is now much better after getting dialysis. Is already scheduled to see Dr. Delaney in August. Time Spent With Patient Time with patient: 15 - 25 minutes Subjective Date/time seen: 08/25/22 12:23 Interval history: This is a follow-up visit for heart failure. Echo done yesterday and shows reduced LVEF. Unclear if this is new, however, unlikely to be new as patient was already on GDMT at home. Records obtained from [place], however, they do not mention what his EF was at that time. However, we do have a cardiac cath report from them. Cardiac cath was done 05/19/2022. left dominant coronary circulation 100% ostial occlusion of the LAD patent stents in the left main extending into the distal left circumflex artery with a 20% InStent restenoses in the mid left circumflex 100% occlusion of the mid RCA and a non dominant vessel patent NYE to the LAD 100% ostial occlusion of the SVG to the ramus 100% ostial occlusion of the SVG to diagonal patent SVG to obtuse marginal branch, there are patent stents in the proximal and mid body of this graft with a 30-40% focal InStent restenosis in the proximal body and a 40% stenosis in the mid body of the graft, and a 40% stenosis in the distal body of the graft these findings are unchanged compared to prior catheterization from April 2021 patient also underwent Watchman device in July 2019 with a 27 mm device Review of Systems Constitutional: Constitutional: Denies body ache(s), Denies chills, Reports fatigue and Reports weakness Eyes: Eyes: Reports no additional eye complaints ENT: Denies dysphagia and Denies epistaxis Cardiovascular: Cardiovascular: Denies chest pain, Denies leg edema and Denies palpitations Respiratory: Respiratory: Reports dyspnea Gastrointestinal: Gastrointestinal: Denies abdominal pain, Denies nausea and Denies vomiting Musculoskeletal: Musculoskeletal: Reports no additional musculoskeletal complaints Integumentary/Breasts: Skin/Breast: Reports system reviewed and no additional complaints, except as docu Neurologic: Reports system reviewed and no additional complaints, except as documented Hematologic/Lymphatic: Hematologic/Lymphatic: Denies easy bleeding and Denies easy bruising Exam Const: General: comfortable and no acute distress HENMT: Mouth: Yes moist mucous membranes Eyes: General: appearance normal, both eyes and all related structures Neck: Neck: supple and no JVD Resp: Effort & Inspection: normal respiratory effort Auscultation: diminished lung sounds Cardio: Rate: regular rate Rhythm: regular rhythm Heart sounds: no murmurs GI: GI Palp: Yes Soft to palpation and No Tenderness to palpation present (GI) Skin: General skin exam: normal color Neuro: Speech: normal speech Extrem: General: no edema Psych: Mental Status: mental status grossly normal Objective Data Vital Signs Vital Signs: Vital Signs - 24 hr 08/24/22 12:30 08/24/22 12:39 08/24/22 12:43 Temperature 36.8 C Pulse Rate 78 77 76 Respiratory R
[2022-08-25 13:54] LABS: Glucose Point of Care 137 mg/dl (65-105)
[2022-08-25] MEDS: SEVELAMER CARBONATE 800 MG TABLET 2400 MG PO (14:34)
[2022-08-25] MEDS: DULoxetine HCL 60 MG CAPSULE.DR PO (14:35)
[2022-08-25] MEDS: VITAMIN B CMPLX/VIT C/FOLIC AC 1 CAPSULE 1 CAP PO (14:35)
[2022-08-25] MEDS: ASPIRIN 81 MG ENTERIC TABLET PO (14:35)
[2022-08-25] MEDS: TOLNAFTATE 1% POWDER 45 GM BTL 1 APPLIC TOPICAL (14:36)
--- NOTE | 2022-08-25 15:14 | PM.DS ---
DS: Admitting Diagnosis Discharge Date August 25, 2022 Admitting Diagnosis Shortness of breath DS: Discharge Diagnosis Discharge Diagnosis (1) Chest pain: Code(s): R07.9 - Chest pain, unspecified Status: Acute Assessment and Plan: appreciate cardiology consultation, echo pending, likely not cardiac in etiology (2) Dyspnea on exertion: Code(s): R06.09 - Other forms of dyspnea Status: Acute Assessment and Plan: improved after dialysis, suspect it was due to volume overload, follow up on echo results, hold off on antibiotics for now (3) Fluid overload, unspecified: Code(s): E87.70 - Fluid overload, unspecified Status: Acute Assessment and Plan: improved, monitor (4) Essential (primary) hypertension: Code(s): I10 - Essential (primary) hypertension Status: Acute Assessment and Plan: stable, continue p.r.n. medications for now, defer further management to Nephrology (5) ESRD (end stage renal disease): Code(s): N18.6 - End stage renal disease Status: Acute Assessment and Plan: appreciate nephrology consultation (6) Controlled diabetes mellitus: Code(s): E11.9 - Type 2 diabetes mellitus without complications Status: Acute Assessment and Plan: a1c is 6.1 with insulin pump on board cont accuchecks (7) Hyperlipidemia, unspecified: Code(s): E78.5 - Hyperlipidemia, unspecified Status: Acute Assessment and Plan: continue statin (8) Erythropoietin deficiency anemia: Code(s): D63.1 - Anemia in chronic kidney disease Status: Acute Assessment and Plan: stable, appreciate nephrology consultation, receiving Epogen (9) Depression: Code(s): F32.A - Depression, unspecified Status: Acute Assessment and Plan: continue home medications Plan DVT prophylaxis with SCDs GI prophylaxis not indicated Code status full code DS: Summary Hospital Course Hospital Course: 76-year-old male patient who has end-stage renal disease with dialysis on Sunday and Sunday.? The patient tells me that he has all of his care performed at [facility].? However the patient cannot tell me who his collar pointer is.? He also his a history of 5 stents and a 1 vessel CABG.? The patient stated that he became short of breath today and was very dyspneic with rest? and exertion? He was unable to move without becoming short of breath.? He also had some chest tightness that started yesterday and was? resolved after nitroglycerin.? No chest pain today.? The patient noted that he had nausea vomiting and diarrhea yesterday and improved today.? He had some nausea today the no abdominal pain.? The patient stated that he is new to this area.? His H&H is 10.7 and 33.2.? MCV is 101.5.? Platelet count 149.? The patient's BUN is 37 and creatinine 7.6.? Glucose 159 and he had an Accu-Chek of 123. ? phosphorus? was 5.6.? Troponin 0.083 and 0.117.? His BNP was greater than 35,000. Dr. Ruffin collar pointer has been consulted and the patient went to dialysis today.? The patient stated he felt much better after dialysis.? COVID-19 was found to be negative.? Chest x-ray was read as opacities at the dependent lower lung zones which could represent pulmonary edema atelectasis or pneumonia.? Small bilateral pleural effusions.? The patient was given IV fluids and Catapres as well as Retacrit per Dr. Ruffin.? He was also given albumin. Nephrology was consulted to manage dialysis. He was thought to be volume overloaded. Cardiology was consulted for elevated troponins. These were thought to be secondary to dialysis and not cardiac in etiology. Cm echo showed an EF of 25-30% with severe reduction in right ventricular systolic function no significant valvular disease or pulmonary hypertension was noted. Patient symptoms resolved and he appeared to be euvolemic and was discharged in stable condition with outpa
== END 2022-08-25 18:07 | disposition home or self-care (01) | DRG 640 ==
LOC: ANHED 10:23 → ANHIMU 13:45
PROVIDERS: Nurse Practitioner; Physician Assistant; Admitting Provider Internal Medicine; Emergency Provider Emergency Medicine; PCP Family Medicine; Visit Provider Student in an Organized Health Care Education/Training Program
DX: E87.79 Other fluid overload (principal); N18.6 End stage renal disease; I42.9 Cardiomyopathy, unspecified; I12.0 Hypertensive chronic kidney disease with stage 5 chronic kidney disease or end stage renal disease; I25.10 Atherosclerotic heart disease of native coronary artery without angina pectoris; E11.22 Type 2 diabetes mellitus with diabetic chronic kidney disease; E11.43 Type 2 diabetes mellitus with diabetic autonomic (poly)neuropathy; E78.5 Hyperlipidemia, unspecified; D63.1 Anemia in chronic kidney disease; N25.0 Renal osteodystrophy; I25.2 Old myocardial infarction; K21.9 Gastro-esophageal reflux disease without esophagitis; K31.84 Gastroparesis; R07.89 Other chest pain; F32.A Depression, unspecified; Z20.822 Contact with and (suspected) exposure to COVID-19; Z96.659 Presence of unspecified artificial knee joint; Z99.2 Dependence on renal dialysis; Z79.01 Long term (current) use of anticoagulants; Z79.4 Long term (current) use of insulin; Z95.1 Presence of aortocoronary bypass graft; Z95.5 Presence of coronary angioplasty implant and graft; Z87.891 Personal history of nicotine dependence
CPT/HCPCS: 36415; 36600; 71045; 71046; 80053; 80069; 82728; 82805; 82948; 83036; 83615; 83690; 83735; 83880; 84100; 84484; 85025; 85055; 85610; 85730; 93005; 96374; 96375; 99285; A9270; C8929; G0257; G0378; J0360; J7030; Q5105; Q9957; U0003; U0005